=== PATIENT | female | born 1985 | race Hispanic/Latino ===

== ENCOUNTER 2016-06-04 20:31 | Emergency (ER) | payer MEDICAID ==
[~2016-06-04] VITALS: Ht 152.4 cm; Wt 113.2 kg
[~2016-06-04 20:31] MED LIST: AMOXICILLIN500 M2 PO; AMOXICILLIN500 MG PO; ANTIVERT PO; MOTRIN800 MG PO; NAPROSYN500 MG PO; ZOFRAN ODT4 MG PO; penicillin
[2016-06-04] MEDS ORDERED: AMOXICILLIN500 MG PO (22:22)
[2016-06-04 22:50] VITALS: BP 148/81
== END 2016-06-04 23:07 | disposition home or self-care (01) | DRG 153 ==
LOC: ED 20:31
DX: J02.9 Acute pharyngitis, unspecified (principal); M79.1 Myalgia

== ENCOUNTER 2016-10-06 08:14 | Emergency (ER) | payer MEDICAID ==
[~2016-10-06] VITALS: Ht 152.4 cm; Wt 115.0 kg
[2016-10-06 08:39] VITALS: BP 120/72
[2016-10-06] MEDS ORDERED: AMOXICILLIN500 MG PO (08:39)
[2016-10-06] MEDS ORDERED: CLARITIN10 M1 PO (08:39)
== END 2016-10-06 08:46 | disposition home or self-care (01) | DRG 153 ==
LOC: ED 08:14
DX: J02.0 Streptococcal pharyngitis (principal); R50.9 Fever, unspecified

== ENCOUNTER 2016-12-19 14:15 | Emergency (ER) | payer OTHER, MEDICAID ==
[~2016-12-19] VITALS: Ht 152.4 cm; Wt 100.0 kg
[~2016-12-19 14:15] MED LIST changes: +CLARITIN10 M1 PO
[2016-12-19 14:41] VITALS: BP 137/67
== END 2016-12-19 14:41 | disposition home or self-care (01) | DRG 914 ==
LOC: ED 14:15
DX: S09.90XA Unspecified injury of head, initial encounter (principal); R60.9 Edema, unspecified; R51 Headache; S00.91XA Abrasion of unspecified part of head, initial encounter; W22.09XA Striking against other stationary object, initial encounter; Y93.89 Activity, other specified; Y92.219 Unspecified school as the place of occurrence of the external cause

== ENCOUNTER 2017-02-28 08:29 | Emergency (ER) | payer MEDICAID ==
[~2017-02-28] VITALS: Ht 152.4 cm; Wt 105.0 kg
[2017-02-28] MEDS ORDERED: CLARITIN10 M1 PO (09:02)
[2017-02-28] MEDS ORDERED: AMOXICILLIN500 MG PO (09:02)
[2017-02-28 09:19] VITALS: BP 114/62
== END 2017-02-28 09:25 | disposition home or self-care (01) | DRG 153 ==
LOC: ED 08:29
DX: J03.90 Acute tonsillitis, unspecified (principal); R05 Cough; R59.0 Localized enlarged lymph nodes; R52 Pain, unspecified

== ENCOUNTER 2017-03-03 08:28 | Emergency (ER) | payer MEDICAID ==
[~2017-03-03] VITALS: Ht 152.4 cm; Wt 105.0 kg
[2017-03-03 10:36] LABS: URINE BILIRUBIN - DIPSTICK NEGATIVE (NEGATIVE); URINE BLOOD DIPSTICK NEGATIVE (NEGATIVE); URINE COLOR YELLOW; URINE GLUCOSE - DIPSTICK NEGATIVE (NEGATIVE); URINE KETONE NEGATIVE (NEGATIVE); URINE LEUK ESTERASE NEGATIVE (NEGATIVE); URINE NITRITE - DIPSTICK NEGATIVE (Negative); URINE PH 6.5 (4.5-8.0); URINE PROTEIN - DIPSTICK NEGATIVE (NEG-TRACE); URINE SPECIFIC GRAVITY <=1.005; URINE UROBILINOGEN - DIPSTICK 0.2 E.U./dL (0.2)
[2017-03-03 10:42] LABS: URINE CLARITY CLEAR
[2017-03-03] MEDS ORDERED: MUCINEX600 MG PO (12:05)
[2017-03-03 12:29] VITALS: BP 125/77
== END 2017-03-03 12:34 | disposition home or self-care (01) | DRG 153 ==
LOC: ED 08:28
PROVIDERS: Emergency Medicine
DX: J06.9 Acute upper respiratory infection, unspecified (principal); R05 Cough

== ENCOUNTER 2018-02-17 20:19 | Emergency (ER) | payer MEDICAID ==
[~2018-02-17] VITALS: Ht 152.4 cm; Wt 109.1 kg
[~2018-02-17 20:19] MED LIST changes: +MUCINEX600 MG PO
[2018-02-17 21:03] LABS: HEMATOCRIT 34.7 % (37.0-47.0); HEMOGLOBIN 11.5 g/dl (12.0-16.0); IMMATURE GRANULOCYTES 0.4 % (0.0-5.0); MEAN CELL VOLUME 77.8 fL CALC (80.0-100.0); MEAN CORPUSCULAR HGB 25.8 pG CALC (26.0-32.0); MEAN CORPUSCULAR HGB CONC 33.1 g/L CALC (32.0-36.0); NEUT# 3.98 thou/uL (2.00-7.15); RED BLOOD COUNT 4.46 mill/uL (4.20-5.60); RED CELL DISTRI WIDTH 14.2 % (11.5-15.5)
[2018-02-17 21:16] LABS: ALBUMIN 3.6 g/dL (3.2-5.0); ALKALINE PHOSPHATASE 77 u/l (38-126); AMYLASE 40 u/l (30-110); ANION GAP 12 (6-22 (CALC)); BUN 10 mg/dL (7-17); BUN/CREATININE RATIO 15 (12-20 (CALC)); CARBON DIOXIDE 24 mmol/l (22-30); CHLORIDE 105 mmol/l (95-108); CREATININE 0.7 mg/dL (0.5-1.0); GFR > 60 ML/MIN (>=60 (CALC)); GFR FOR AFR.AMER. > 60 ML/MIN (>=60 (CALC)); POTASSIUM 3.4 mmol/l (3.5-5.1); SGOT/AST 18 u/l (14-36); TOTAL PROTEIN 6.2 g/dL (6.3-8.2)
[2018-02-17 21:19] LABS: SODIUM 138 mmol/l (137-146)
[2018-02-17 21:27] LABS: MYOGLOBIN 20 ng/mL (0 - 62)
[2018-02-17] MEDS ORDERED: NAPROSYN500 MG PO (21:33)
[2018-02-17 22:00] VITALS: BP 110/58
== END 2018-02-17 22:00 | disposition home or self-care (01) ==
LOC: ED 20:19
DX: R07.89 Other chest pain (principal); R42 Dizziness and giddiness

== ENCOUNTER 2018-03-11 09:39 | Emergency (ER) | payer MEDICAID ==
[~2018-03-11] VITALS: Ht 152.4 cm; Wt 115.2 kg
[2018-03-11] MEDS ORDERED: FLONASE AL50 MCG/ACT NAB (10:03)
[2018-03-11] MEDS ORDERED: BACTRIM DS1 TAB PO (10:03)
[2018-03-11] MEDS ORDERED: AFRIN 12 HOUR0.05 % (10:03)
[2018-03-11 10:16] VITALS: BP 117/63
== END 2018-03-11 10:16 | disposition home or self-care (01) ==
LOC: ED 09:39
DX: J01.00 Acute maxillary sinusitis, unspecified (principal); R05 Cough; R09.81 Nasal congestion

== ENCOUNTER 2018-05-09 08:43 | Emergency (ER) | payer MEDICAID ==
[~2018-05-09] VITALS: Ht 152.4 cm; Wt 104.0 kg
[~2018-05-09 08:43] MED LIST changes: +AFRIN 12 HOUR0.05 %; +BACTRIM DS1 TAB PO; +FLONASE AL50 MCG/ACT NAB
[2018-05-09] MEDS ORDERED: AMOXICILLIN500 MG PO (11:30)
[2018-05-09 11:33] VITALS: BP 138/77
== END 2018-05-09 11:40 | disposition home or self-care (01) ==
LOC: ED 08:43
DX: J02.0 Streptococcal pharyngitis (principal)

== ENCOUNTER 2018-10-30 09:42 | Emergency (ER) | payer MEDICAID ==
[~2018-10-30] VITALS: Ht 152.4 cm; Wt 104.5 kg
[2018-10-30] MEDS ORDERED: PAROXETINE HCL20 MG PO (10:02)
[2018-10-30] MEDS ORDERED: CYCLOBENZAPR5 MG PO (11:03)
[2018-10-30 11:25] VITALS: BP 116/74
== END 2018-10-30 11:25 | disposition home or self-care (01) ==
LOC: ED 09:42
DX: S66.911A Strain of unspecified muscle, fascia and tendon at wrist and hand level, right hand, initial encounter (principal); X58.XXXA Exposure to other specified factors, initial encounter

== ENCOUNTER 2018-11-30 06:39 | Emergency (ER) | payer OTHER, MEDICAID ==
[~2018-11-30] VITALS: Ht 152.4 cm; Wt 100.0 kg
[~2018-11-30 06:39] MED LIST changes: +CYCLOBENZAPR5 MG PO; +PAROXETINE HCL20 MG PO
[2018-11-30 09:10] VITALS: BP 137/71
== END 2018-11-30 09:11 | disposition home or self-care (01) | DRG 552 ==
LOC: ED 06:39
DX: S16.1XXA Strain of muscle, fascia and tendon at neck level, initial encounter (principal); S46.912A Strain of unspecified muscle, fascia and tendon at shoulder and upper arm level, left arm, initial encounter; S76.012A Strain of muscle, fascia and tendon of left hip, initial encounter; S96.912A Strain of unspecified muscle and tendon at ankle and foot level, left foot, initial encounter; W18.30XA Fall on same level, unspecified, initial encounter; Y92.009 Unspecified place in unspecified non-institutional (private) residence as the place of occurrence of the external cause

== ENCOUNTER 2019-05-20 | Emergency (ER) | payer MEDICAID ==
[2019-05-20] MEDS ORDERED: IMODIUM2 MG PO ×2 (21:13)
[2019-05-20] MEDS ORDERED: ZOFRAN4 MG/TAB PO ×2 (21:13)
== END 2019-05-20 21:57 | disposition home or self-care (01) ==
DX: R11.2 Nausea with vomiting, unspecified (principal); R19.7 Diarrhea, unspecified

== ENCOUNTER 2019-09-01 12:51 | Emergency (ER) | payer MEDICAID ==
[~2019-09-01] VITALS: Ht 152.4 cm; Wt 105.0 kg
[~2019-09-01 12:51] MED LIST changes: +IMODIUM2 MG PO; +ZOFRAN4 MG/TAB PO
[2019-09-01 14:28] LABS: URINE BILIRUBIN - DIPSTICK NEGATIVE (NEGATIVE); URINE BLOOD DIPSTICK NEGATIVE (NEGATIVE); URINE COLOR YELLOW; URINE GLUCOSE - DIPSTICK NEGATIVE (NEGATIVE); URINE KETONE NEGATIVE (NEGATIVE); URINE LEUK ESTERASE NEGATIVE (NEGATIVE); URINE NITRITE - DIPSTICK NEGATIVE (Negative); URINE PROTEIN - DIPSTICK NEGATIVE (NEG-TRACE); URINE SPECIFIC GRAVITY 1.025; URINE UROBILINOGEN - DIPSTICK 0.2 E.U./dL (0.2)
[2019-09-01] MEDS ORDERED: NAPROXEN500 MG PO (15:47)
[2019-09-01 16:04] VITALS: BP 120/68
== END 2019-09-01 16:12 | disposition home or self-care (01) ==
LOC: ED 12:51
PROVIDERS: Emergency Medicine
DX: S33.5XXA Sprain of ligaments of lumbar spine, initial encounter (principal); X58.XXXA Exposure to other specified factors, initial encounter

== ENCOUNTER 2021-01-28 07:42 | Emergency (ER) | payer MEDICAID ==
[~2021-01-28] VITALS: Ht 152.4 cm; Wt 118.0 kg
[~2021-01-28 07:42] MED LIST changes: +NAPROXEN500 MG PO
[2021-01-28 08:01] VITALS: BP 123/67
[2021-01-28] MEDS ORDERED: TORADOL PO (09:18)
== END 2021-01-28 09:50 | disposition home or self-care (01) ==
LOC: ED 07:42
DX: S66.911A Strain of unspecified muscle, fascia and tendon at wrist and hand level, right hand, initial encounter (principal); S50.11XA Contusion of right forearm, initial encounter; S60.211A Contusion of right wrist, initial encounter; W01.0XXA Fall on same level from slipping, tripping and stumbling without subsequent striking against object, initial encounter; Y92.39 Other specified sports and athletic area as the place of occurrence of the external cause

== ENCOUNTER 2021-07-23 12:51 | Emergency (ER) | payer MEDICAID ==
[~2021-07-23] VITALS: Ht 152.4 cm; Wt 118.0 kg
[~2021-07-23 12:51] MED LIST changes: +TORADOL PO
[2021-07-23] MEDS ORDERED: ESCITALOPRAM OX10 MG PO (13:53)
[2021-07-23 14:48] VITALS: BP 114/55
[2021-07-23 15:00] VITALS: BP 126/71
[2021-07-23 15:06] LABS: HEMATOCRIT 40.1 % (37.0-47.0); HEMOGLOBIN 12.8 g/dl (12.0-16.0); IMMATURE GRANULOCYTES 0.2 % (0.0-5.0); MEAN CELL VOLUME 76.8 fL CALC (80.0-100.0); MEAN CORPUSCULAR HGB 24.5 pG CALC (26.0-32.0); MEAN CORPUSCULAR HGB CONC 31.9 g/dL CAL (32.0-36.0); NEUT# 5.6 thou/uL (2.00-7.15); RED BLOOD COUNT 5.22 mill/uL (4.20-5.60); RED CELL DISTRI WIDTH 15.1 % (11.5-15.5)
[2021-07-23 15:27] LABS: ALBUMIN 3.8 g/dL (3.2-5.0); ALKALINE PHOSPHATASE 107 u/l (38-126); BUN 10 mg/dL (7-17); BUN/CREATININE RATIO 18 (12-20 (CALC)); CARBON DIOXIDE 25 mmol/l (22-30); CHLORIDE 106 mmol/l (95-108); CREATININE 0.6 mg/dL (0.5-1.0); GFR > 60 ML/MIN (>=60 (CALC)); GFR FOR AFR.AMER. > 60 ML/MIN (>=60 (CALC)); LIPASE 61 u/l (23-300); SGOT/AST 24 u/l (14-36); SODIUM 139 mmol/l (137-146); TOTAL PROTEIN 6.7 g/dL (6.3-8.2)
[2021-07-23 15:33] LABS: ANION GAP 12 (6-22 (CALC)); POTASSIUM 4.3 mmol/l (3.5-5.1)
[2021-07-23 15:44] LABS: URINE BILIRUBIN - DIPSTICK NEGATIVE (NEGATIVE); URINE BLOOD DIPSTICK NEGATIVE (NEGATIVE); URINE COLOR YELLOW; URINE GLUCOSE - DIPSTICK NEGATIVE (NEGATIVE); URINE KETONE NEGATIVE (NEGATIVE); URINE LEUK ESTERASE NEGATIVE (NEGATIVE); URINE PROTEIN - DIPSTICK NEGATIVE (NEG-TRACE); URINE SPECIFIC GRAVITY 1.025; URINE UROBILINOGEN - DIPSTICK 0.2 E.U./dL (0.2)
[2021-07-23 15:46] LABS: URINE NITRITE - DIPSTICK NEGATIVE (Negative)
[2021-07-23] MEDS ORDERED: PROTONIX40 M2 PO (16:43)
[2021-07-23] MEDS ORDERED: ONDANSETRON4 MG PO (16:43)
[2021-07-23 16:52] VITALS: BP 126/71
== END 2021-07-23 16:50 | disposition home or self-care (01) ==
LOC: ED 12:51
PROVIDERS: Nurse Practitioner
DX: K21.9 Gastro-esophageal reflux disease without esophagitis (principal)
CPT/HCPCS: S0164

== ENCOUNTER 2021-08-22 08:10 | Emergency (ER) | payer MEDICAID ==
[2021-08-22] VITALS (8 sets, daily range): BP systolic 105–127; BP diastolic 57–74
[~2021-08-22] VITALS: Ht 152.4 cm; Wt 111.0 kg
[~2021-08-22 08:10] MED LIST changes: +ESCITALOPRAM OX10 MG PO; +ONDANSETRON4 MG PO; +PROTONIX40 M2 PO
[2021-08-22 09:22] LABS: HEMATOCRIT 36.7 % (37.0-47.0); HEMOGLOBIN 11.9 g/dl (12.0-16.0); IMMATURE GRANULOCYTES 0.3 % (0.0-5.0); MEAN CELL VOLUME 76.8 fL CALC (80.0-100.0); MEAN CORPUSCULAR HGB 24.9 pG CALC (26.0-32.0); MEAN CORPUSCULAR HGB CONC 32.4 g/dL CAL (32.0-36.0); NEUT# 4.95 thou/uL (2.00-7.15); RED BLOOD COUNT 4.78 mill/uL (4.20-5.60)
[2021-08-22 09:32] LABS: ALBUMIN 3.5 g/dL (3.2-5.0); ALKALINE PHOSPHATASE 99 u/l (38-126); ANION GAP 12 (6-22 (CALC)); BILIRUBIN, TOTAL 0.2 mg/dL (0.0-1.4); BUN 8 mg/dL (7-17); BUN/CREATININE RATIO 15 (12-20 (CALC)); CARBON DIOXIDE 24 mmol/l (22-30); CHLORIDE 106 mmol/l (95-108); CREATININE 0.5 mg/dL (0.5-1.0); GFR FOR AFR.AMER. > 60 ML/MIN (>=60 (CALC)); GFR OTHER RACES > 60 ML/MIN (>=60 (CALC)); POTASSIUM 3.9 mmol/l (3.5-5.1); SGOT/AST 21 u/l (14-36); SODIUM 138 mmol/l (137-146); TOTAL PROTEIN 6.5 g/dL (6.3-8.2)
[2021-08-22 09:43] LABS: MYOGLOBIN 19 ng/mL (0 - 62)
[2021-08-22] MEDS ORDERED: FIORICET PO (11:46)
== END 2021-08-22 11:45 | disposition home or self-care (01) ==
LOC: ED 08:10
PROVIDERS: Emergency Medicine
DX: R07.89 Other chest pain (principal); R51.9 Headache, unspecified